=== PATIENT | male | born 1960 | race Caucasian/White ===

== ENCOUNTER 2023-06-26 19:24 | Emergency (ER) | payer SELFPAY ==
--- NOTE | ~2023-06-26 | CT_ITS ---
EXAMINATION: CTA brain carotid DATE: 06/26/2023 19:42 INDICATION: dysarthria, aphasia, R arm weak TECHNIQUE: Computed tomographic angiography (CTA) of the head and neck was performed withwith 100 mL Omnipaque-350 intravenous contrast. Automated exposure control and iterative reconstruction technique were employed. . The dose-length product was 1143.62 mGy-cm. Maximum intensity projection and volum e rendered 3D-reconstructions were created by the technologist on a separate workstation. COMPARISON: CT brain, same date. FINDINGS: CTA HEAD: Short segment severe stenosis of a left M2 segment branch. 4 mm aneurysm at the junction of the dista l right M1 and first right M2 branch. No high flow vascular malformation, nidus or extravasation. Lester ateral carotid siphon atherosclerotic calcifications without significant stenosis. Symmetric parenchy mal enhancement. Patent cerebral veins. CTA NECK: Aortic arch and proximal great vessels: Atherosclerotic calcifications at the visualized aortic arch and proximal great vessels. Right common carotid, carotid bifurcation, and internal carotid artery: Calcified plaque at the bifur cation.There is 0% stenosis of the proximal right internal carotid artery relative to normal distal a rtery lumen diameter (NASCET criteria). Left common carotid, carotid bifurcation, and internal carotid artery: Calcified plaque at the bifurc ation. Suggestion of early ulcerative plaque in the proximal left internal carotid artery.There is 0% stenosis of the proximal left internal carotid artery relative to normal distal artery lumen diamete r (NASCET criteria). Vertebral arteries: No significant plaque or stenosis. Right vertebral artery is dominant, Other findings: Emphysematous change in the lungs. IMPRESSION: Severe short segment stenosis of a left M2 segment branch. 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 Early ulcerative plaque at the proximal left internal carotid artery. Reviewed, dictated and finalized at location K.
--- NOTE | ~2023-06-26 | CT_ITS ---
EXAMINATION: CT brain wo con DATE: 06/26/2023 19:29 INDICATION: code stroke . TECHNIQUE: Computed tomography (CT) of the head was performed without intravenous contrast. The mA wa s adjusted according to patient size. Iterative reconstruction technique was employed. The dose-lengt h product was 832.33 mGy-cm. COMPARISON: None. FINDINGS: Motion artifact which required repeat, noncontiguous imaging. No acute intracranial hemorrhage or extra-axial fluid collection. No hydrocephalus, mass, or herniation. No acute ischemic infarct. Unremarkable dural venous sinus attenuation. No acute osseous abnormality. Moderate mucosal thickening in the frontal, right sphenoid, and multiple ethmoid air cells. Near-comp lete opacification of multiple ethmoid air cells. Aerated secretions in the left frontal sinus. The r emaining aerated spaces are clear. Moderate atrophy and chronic white matter change. Atherosclerotic intracranial calcification. IMPRESSION: No acute intracranial process. Paranasal sinus findings may represent acute sinusitis in the appropriate clinical context. Results reported telephonically to Claudia Beckford PA-C by Dr. Amanda at 7:34 PM on 06/26/2023. Reviewed, dictated and finalized at location K. IMPRESSION: No acute intracranial process. Paranasal sinus findings may represent acute sinusitis in the appropriate clini arash context. Results reported telephonically to Claudia Beckford PA-C by Dr. Amanda at 7:34 PM o n 06/26/2023.
--- NOTE | 2023-06-26 19:21 | ED.NEUROSD ---
HPI - Neuro Symptoms/Deficit General Chief Complaint: Neuro Symptoms/Deficit Stated Complaint: facial droop History of Present Illness HPI Narrative: Patient is a 60-year-old male presenting as code stroke. Approximately 40 minutes ago, he was noted to have slurred speech by his family who called EMS. For EMS he had slurred speech as well as bilateral upper extremity weakness. On arrival, patient continues to have significant dysarthria and aphasia. He denies any pain currently. Further history limited 2/2 clinical condition. Related Data Allergies Allergy/AdvReac Type Severity Reaction Status Date / Time No Known Allergies Allergy Verified 06/27/23 13:31 Review of Systems Review of Systems: ROS unobtainable: Yes unobtainable due to medical condition Exam Narrative: GENERAL: Nontoxic, no acute distress HEAD: Normocephalic, atraumatic. EYES: PERRLA and EOMI. ENT: Nares clear, no rhinorrhea or epistaxis. Mucous membranes moist. NECK: Supple. CHEST: Clear to auscultation. No respiratory distress. HEART: Regular rate and rhythm ABDOMEN: Soft, nontender, nondistended EXTREMITIES: Normal range of motion. No edema. SKIN: Warm, dry, no rash. NEURO: + Dysarthric and aphasic, 5 out of 5 strength lower extremities, 5 out of 5 strength left upper extremity, 4 out of 5 strength right upper extremity PSYCH: Normal mood and affect. Course Vital Signs Vital signs: Vital Signs Temperature 98.3 F 06/26/23 19:46 Pulse Rate 71 06/26/23 19:46 Respiratory Rate 18 06/26/23 19:46 Blood Pressure 183/93 H 06/26/23 19:46 Pulse Oximetry 98 06/26/23 19:46 Oxygen Delivery Room Air 06/26/23 19:46 Temperature 98.3 F 06/26/23 19:46 Pulse Rate 74 06/26/23 21:07 Respiratory Rate 18 06/26/23 21:07 Blood Pressure 171/99 H 06/26/23 21:07 Pulse Oximetry 97 06/26/23 21:07 Oxygen Delivery Room Air 06/26/23 19:46 MDM - Neuro Symptoms/Deficit MDM Narrative Medical decision making narrative: Patient is a 60-year-old male presenting with dysarthria and aphasia. Patient is hypertensive 170-180s over 90s. CT brain shows no evidence of hemorrhage. Patient with NIH of 7, I spoke with the stroke team at [facility] who agrees with tPA. Patient consented and tPA started. Hydralazine x1 given for blood pressure 180 systolic. Goal blood pressure less than 185/110 per tPA guidelines. Patient has been accepted to [facility]'s ER with their stroke team aware. Patient airlifted emergently in serious condition. Differential Diagnosis Differential diagnosis: Likely cerebrovascular accident and transient cerebral ischemia Medical Records Attestation: I reviewed the patient's medical records. Lab Data Attestation: I reviewed the patient's lab results. 06/26/23 19:27 06/26/23 19:34 Labs: Lab Results 06/26/23 06/26/23 06/26/23 Range/Units 19:27 19:34 20:14 WBC 8.9 (4.5-10.0) K/mm3 RBC 4.83 (4.6-6.20) M/mm3 Hgb 15.0 (14.0-18.0) g/dL Hct 43.2 (42.0-52.0) % MCV 89.4 (80-100) fl MCH 31.1 (26-34) pg MCHC 34.7 (32-36) g/dl RDW 13.1 (11.5-14.5) % Plt Count 169 (150-375) k/mm3 MPV 11.1 H (7.4-10.4) fl Immature Gran % (Auto) 0.3 (0-0.5) % Neut % (Auto) 50.1 (45.5-73.1) % Lymph % (Auto) 41.6 (18.3-44.2) % [place] % (Auto) 7.4 (2.6-8.5) % Eos % (Auto) 0.2 (0-4.4) % Baso % (Auto) 0.4 (0.2-1.2) % Lymph # (Auto) 3.72 H (0.9-3.2) K/mm3 [place] # (Auto) 0.7 H (0.1-0.6) K/mm3 Eos # (Auto) 0.0 (0-0.3) K/mm3 Baso # (Auto) 0.0 (0.0-0.1) K/mm3 Abs Immat Gran (auto) 0.03 (0.00-0.031) K/mm3 Absolute Neuts (auto) 4.5 (1.3-6.7) K/mm3 Absolute Nucleated RBC 0.0 (0.0-0.012) K/mm3 Nucleated RBC % 0.0 (0.0-0.2) % PT 13.9 (11.1-14.7) Seconds INR 1.0 APTT 28.2 (22.3-36.8) SECONDS Sodium 137 (137-145) mmol/L Potassium 3.8 (3.4-5.0) mmol/L Chloride 104 (98-107) mmol/L Carbon
[2023-06-26 19:38] LABS: Basophils Percent Auto 0.4 % (0.2-1.2); Eosinophils Percent Auto 0.2 % (0-4.4); Hematocrit 43.2 % (42.0-52.0); Immature Granulocyte Absolute 0.03 K/mm3 (0.00-0.031); Immature Granulocyte Percent A 0.3 % (0-0.5); Lymphocytes Absolute Auto 3.72 K/mm3 (0.9-3.2); Lymphocytes Percent Auto 41.6 % (18.3-44.2); Mean Corpuscular HGB Conc 34.7 g/dl (32-36); Mean Corpuscular Hemoglobin 31.1 pg (26-34); Mean Corpuscular Volume 89.4 fl (80-100); Mean Platelet Volume 11.1 fl (7.4-10.4); Monocytes Absolute Auto 0.7 K/mm3 (0.1-0.6); Monocytes Percent Auto 7.4 % (2.6-8.5); Neutrophils Absolute Auto 4.5 K/mm3 (1.3-6.7); Neutrophils Percent Auto 50.1 % (45.5-73.1); Platelet Count Result 169 k/mm3 (150-375); Red Blood Count 4.83 M/mm3 (4.6-6.20); Red Cell Distribution Width 13.1 % (11.5-14.5); White Blood Count 8.9 K/mm3 (4.5-10.0)
[2023-06-26 19:46] VITALS: BP 183/93; PULSE 71; RESP 18; TEMP 36.8; O2SAT 98
[2023-06-26 19:47] LABS: Estimated Glomerular Filt Rate > 60
[2023-06-26 19:52] LABS: Alanine Aminotransferase 40 U/L (6-50); Albumin Level 4.2 g/dL (3.5-5.1); Alkaline Phosphatase 75 U/L (38-126); Anion Gap 4 mmol/L (8-16); Aspartate Amino Transferase 34 U/L (17-59); Bilirubin,Total 0.5 mg/dL (0.2-1.3); Blood Urea Nitrogen 17 mg/dL (9-20); Calcium 8.7 mg/dL (8.4-10.2); Carbon Dioxide 29 mmol/L (22-30); Chloride 104 mmol/L (98-107); Estimated Glomerular Filt Rate > 60; Glucose 131 mg/dL (65-110); Potassium 3.8 mmol/L (3.4-5.0); Sodium 137 mmol/L (137-145)
[2023-06-26 19:56] VITALS: BP 183/93; PULSE 71; RESP 20; O2SAT 97
[2023-06-26 19:57] LABS: Prothrombin Time 13.9 Seconds (11.1-14.7)
[2023-06-26 19:58] LABS: Partial Thromboplastin Time 28.2 SECONDS (22.3-36.8)
[2023-06-26 20:03] LABS: Troponin I < 0.012 ng/mL (0.000-0.034)
[2023-06-26 20:10] VITALS: PULSE 71
[2023-06-26 20:22] LABS: Appearance Urine Clear (Clear); Bilirubin Urine Negative (Negative); Blood Urine Negative (Negative); Color Urine Yellow (Yellow); Glucose Urine UA Negative (Negative); Ketones Urine Negative (Negative); Leukocyte Esterase Ur Negative LEU/UL (Negative); Nitrate Urine Negative (Negative); Protein Urine Negative (Negative); pH Urine 6.5 (5.0-9.0)
[2023-06-26 20:23] LABS: Add Urine Microscopic? NO; Specific Grav Ur 1.061 (1.001-1.035)
[2023-06-26] MEDS: hydrALAZINE HCL 20 MG/ML VIAL IV PUSH (20:37)
--- NOTE | 2023-06-26 21:00 | PC.NURSE ---
2020: [facility] called, declined d/t lack of available trucks 2022: [facility] called, declined d/t lack of available trucks 2030: [facility] called, declined d/t lack of available trucks 2034: [facility] called, decline d/t lack of available trucks 2037: Per MD instruction, [facility] called for pt transfer 2047: [facility] arrived
[2023-06-26 21:07] VITALS: BP 171/99; PULSE 74; RESP 18; O2SAT 97
--- NOTE | 2023-06-26 21:12 | PC.NURSE ---
TPA still infusing and being monitored by [facility] team during pt's transport to [facility].
[2023-07-09 08:45] LABS: Glucose Point of Care 145 mg/dl (65-105)
[2023-07-23 11:01] LABS: Glucose Point of Care 145 mg/dl (65-105)
== END 2023-06-26 21:10 | disposition short-term general hospital (02) ==
PROVIDERS: Emergency Provider Emergency Medicine
DX: I63.512 Cerebral infarction due to unspecified occlusion or stenosis of left middle cerebral artery (principal); I67.1 Cerebral aneurysm, nonruptured; I65.22 Occlusion and stenosis of left carotid artery; R29.707 NIHSS score 7
CPT/HCPCS: 36415; 37195; 70450; 70496; 70498; 80053; 81003; 82948; 84484; 85025; 85610; 85730; 96374; 99285; J0360; J2997; Q9967

== ENCOUNTER 2024-05-12 12:09 | Emergency (ER) | payer BC, SELFPAY ==
[2024-05-12] VITALS (7 sets, daily range): BP systolic 91–124; BP diastolic 60–82; PULSE 50–62; RESP 12–19; TEMP 36.7; O2SAT 97–99
--- NOTE | ~2024-05-12 | CT_ITS ---
Non-contrast Head CT History: Altered mental status COMPARISON: 06/26/2023 Technique: Axial non-contrast imaging of the brain was performed. Dose reduction technique was used on this scan by utilizing automated exposure control and iterative reconstruction technique. The dose -length product (DLP) was 605.33 mGy-cm. Findings: There is no evidence of intracranial hemorrhage, mass lesion, or acute infarct. Chronic le ft frontal lobe infarct noted. The ventricles and subarachnoid spaces are normal in size. The davis rium appears normal. The visualized paranasal sinuses and mastoid air cells are clear. Impression: No acute abnormality seen. 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 Reviewed, dictated and finalized at location . Impression: No acute abnormality seen. 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
--- NOTE | 2024-05-12 12:23 | ECG_ITS ---
Test Date: 2024-05-12 13:06:23 Measurements Intervals [place] Rate: 50 P: 144 UT: 198 QRS: 28 QRSD: 90 T: -11 QT: 432 QTc: 394 Interpretive Statements ELECTRONIC ATRIAL PACEMAKER MINIMAL Q WAVES- LATERAL LEADS INFERIOR INFARCT, AGE INDETERMINATE BASELINE ARTIFACT- V3 ABNORMAL ECG No previous ECG available for comparison Electronically Signed On 05-12-2024 13:20:13 CDT by Earl Blanton D.O.
--- NOTE | 2024-05-12 12:23 | ED.GENADULT ---
HPI - General Adult General Chief complaint: Nausea/Vomiting/Diarrhea Stated complaint: cva Time Seen by Provider: 05/12/24 12:13 History of Present Illness HPI narrative: [age] old male prior history of CVA presented to emergency department for evaluation after an episode of nausea and vomiting. Patient was driving his vehicle when he had onset of nausea and diaphoresis. Patient denies any chest pain or shortness of breath with this. Patient denies any focal numbness or weakness. Patient did get out to the side of the road and had approximately 5 minutes of nausea and vomiting. Family was able to help him back into the car and they present to the emergency department for evaluation. Upon arrival emergency department patient states he does feel improved. Patient has no further nausea or vomiting. Patient denies any current chest pain or shortness of breath and patient denies any focal numbness or weakness. Patient reports he has been eating and drinking well for the last few days and has been taking his medications. Related Data Allergies Allergy/AdvReac Type Severity Reaction Status Date / Time No Known Allergies Allergy Verified 05/12/24 12:22 Review of Systems Review of Systems: All systems reviewed & are unremarkable except as noted in HPI and below Exam Narrative: APPEARANCE: Ill-appearing HEAD: normocephalic, atraumatic. EYES: PERRLA/EOMI, conjunctivae clear. NOSE: Normal no drainage EARS:TMS clear with good light reflex. THROAT: Pharynx clear, no exudate. NECK: Supple. No adenopathy, no masses. RESPIRATORY: Airway patent, respirations nonlabored. Clear to auscultation bilaterally, no rales, rhonchi, wheezing. CARDIOVASCULAR: Regular rate and rhythm without murmurs rubs or gallops. ABDOMINAL: Soft, nontender, nondistended, normal bowel sounds MUSCULOSKELETAL: Moves all extremities. Strength/ROM intact, No edema, No calf tenderness. NEURO: Alert. Cranial nerves II through XII intact. Grossly intact SKIN: Warm, dry. Normal Color Course Course Emergency Course: Patient felt improved with treatment and was comfortable with plan for discharge to home. Vital Signs Vital signs: Vital Signs Pulse Rate 53 L 05/12/24 12:18 Respiratory Rate 12 05/12/24 12:18 Blood Pressure 121/82 05/12/24 12:18 Pulse Oximetry 97 05/12/24 12:18 Oxygen Delivery Room Air 05/12/24 12:18 Temperature 98.0 F 05/12/24 15:37 Pulse Rate 62 05/12/24 15:37 Respiratory Rate 18 05/12/24 15:37 Blood Pressure 124/77 05/12/24 15:37 Pulse Oximetry 99 05/12/24 15:37 Oxygen Delivery Room Air 05/12/24 12:18 Medical Decision Making MDM Narrative Medical decision making narrative: 64-year-old male presents emergency department for evaluation for episode nausea and vomiting. Patient is back to his baseline and nausea vomiting is resolved. Patient is tolerating p.o.. Patient was treated with 2 L of IV fluid and does feel improved. Patient is afebrile with no leukocytosis and a stable hemoglobin of 15.4. Patient has no acute abnormalities on his CMP and urine was negative for infection. Head CT showed no acute abnormality. Patient was able to ambulate at his baseline and orthostatic vital signs were normal and he was asymptomatic with ambulation. Patient was comfortable with plan for discharge to home. During the episode patient denied having any chest pain shortness of breath. Patient continues to deny any associated chest pain Differential Diagnosis Differential Diagnosis: Nausea, vomiting, CVA, TIA, IN, syncope, near syncope Vital Signs Vital Signs: Vital Signs Pulse Rate 53 L 05/12/24 12:18 Respiratory Rate 12 05/12/24 12:18 Blood Pressure 121/82 05/12/24 12:18 Pulse Oximetry 97 05/12/24 12:18 Oxygen Delivery Room Air 05/12/24 12:18 Temperature 98.0 F 05/12/24 15:37 Pulse Rate 62 05/12/24 15:37 Respiratory Rate 18 05/12/24 15:37 Blood Pressure 124/77 07
[2024-05-12 12:42] LABS: Basophils Percent Auto 0.4 % (0.2-1.2); Eosinophils Percent Auto 0.2 % (0-4.4); Hematocrit 44.6 % (42.0-52.0); Hemoglobin 15.4 g/dL (14.0-18.0); Immature Granulocyte Absolute 0.01 K/mm3 (0.00-0.031); Immature Granulocyte Percent A 0.2 % (0-0.5); Lymphocytes Absolute Auto 1.59 K/mm3 (0.9-3.2); Lymphocytes Percent Auto 35.3 % (18.3-44.2); Mean Corpuscular HGB Conc 34.5 g/dl (32-36); Mean Corpuscular Hemoglobin 31.5 pg (26-34); Mean Corpuscular Volume 91.2 fl (80-100); Mean Platelet Volume 10.7 fl (7.4-10.4); Monocytes Absolute Auto 0.6 K/mm3 (0.1-0.6); Monocytes Percent Auto 13.3 % (2.6-8.5); Neutrophils Absolute Auto 2.3 K/mm3 (1.3-6.7); Neutrophils Percent Auto 50.6 % (45.5-73.1); Platelet Count Result 162 k/mm3 (150-375); Red Blood Count 4.89 M/mm3 (4.6-6.20); Red Cell Distribution Width 12.7 % (11.5-14.5); White Blood Count 4.5 K/mm3 (4.5-10.0)
[2024-05-12 12:49] LABS: Alanine Aminotransferase 26 U/L (6-50); Albumin Level 4.6 g/dL (3.5-5.1); Alkaline Phosphatase 70 U/L (38-126); Anion Gap 8 mmol/L (4-12); Aspartate Amino Transferase 33 U/L (17-59); Bilirubin,Total 0.6 mg/dL (0.2-1.3); Blood Urea Nitrogen 14 mg/dL (9-20); Calcium 9.6 mg/dL (8.4-10.2); Carbon Dioxide 31 mmol/L (22-30); Chloride 99 mmol/L (98-107); Estimated CRCL calculation 57 ml/min; Estimated Glomerular Filt Rate 56; Glucose 140 mg/dL (65-110); Magnesium 1.9 mg/dL (1.6-2.3); Potassium 4.2 mmol/L (3.4-5.0); Sodium 138 mmol/L (137-145)
[2024-05-12] MEDS: SODIUM CHLORIDE 0.9% IV 1,000 ML 999 ML IV CONT ×2 (13:02→14:17)
[2024-05-12] MEDS: ONDANSETRON INJ 4 MG/2 ML VIAL IV PUSH (13:03)
[2024-05-12 13:31] LABS: Appearance Urine Cloudy (Clear); Bacteria Urine None Seen /hpf; Bilirubin Urine 1+ (Negative); Blood Urine Negative (Negative); Color Urine Dark Yellow (Yellow); Glucose Urine UA Negative (Negative); Ketones Urine Trace mg/dL (Negative); Leukocyte Esterase Ur Negative LEU/UL (Negative); Mucus Urine Present /lpf; Nitrate Urine Negative (Negative); Protein Urine Trace mg/dL (Negative); RBC Urine 0-2 /hpf (0-2); Specific Grav Ur 1.026 (1.001-1.035); Squamous Epithelial Cell Urine None Seen /hpf (Few); WBC Urine 0-5 /hpf (0-3); pH Urine 5.5 (5.0-9.0)
[2024-05-12 13:44] LABS: Add Urine Microscopic? YES
== END 2024-05-12 15:39 | disposition home or self-care (01) ==
PROVIDERS: Emergency Provider Emergency Medicine
DX: R11.2 Nausea with vomiting, unspecified (principal); Z86.73 Personal history of transient ischemic attack (TIA), and cerebral infarction without residual deficits; Z95.0 Presence of cardiac pacemaker; R94.31 Abnormal electrocardiogram [ECG] [EKG]
CPT/HCPCS: 36415; 70450; 80053; 81001; 83735; 85025; 93005; 96361; 96374; 99284; J2405; J7030